=== PATIENT | male | born 1955 | race Caucasian/White ===

== ENCOUNTER 2016-07-21 06:48 | Day surgery (SDC) | payer OTHER ==
--- NOTE | ~2016-07-21 | EGD ---
EGD REPORT [facility] [address] [address] NAME: ITZ SANCHEZ : 59 STATUS : REG [facility]#: [id number] AGE: 60 ADM/REG DATE : 07/21/16 MR#: [id number] REPORT SERV DATE: 07/21/16 DICTATED BY: DATE: REPORT STATUS : Draft TRANSCRIBED BY: [employer] DATE: 07/21/16 [facility] Patient Name: Itz Sanchez Date of : 1955 Attending MD: MART BROWN MD Procedure Date No Time: 07/21/2016 Procedure: Colonoscopy Indications: Screening for colorectal malignant neoplasm Referring MD: Dell Cohen Medicines: Propofol per Anesthesia Complications: No immediate complications. Procedure: Pre-Anesthesia Assessment: - ASA Grade Assessment: III - A patient with severe systemic disease. After I obtained informed consent, the scope was passed under direct vision. Throughout the procedure, the patient's blood pressure, pulse, and oxygen saturations were monitored continuously. The CF [id number] was introduced through the anus and advanced to the cecum, identified by appendiceal orifice and ileocecal valve. The ileocecal valve, appendiceal orifice and terminal ileum were photographed. The entire colon was examined. The colonoscopy was performed without difficulty. Findings: The perianal and digital rectal examinations were normal. A sessile polyp was found in the descending colon. The polyp was 5 mm in size. The polyp was removed with a hot snare. Resection and retrieval were complete. Many medium-mouthed diverticula were found in the recto-sigmoid colon, in the sigmoid colon and in the descending colon. Internal hemorrhoids were found during retroflexion and were Grade I (internal hemorrhoids that do not prolapse). The rest of the colon was normal. Impression: - One 5 mm polyp in the descending colon. Resected and retrieved. - Diverticulosis in the recto-sigmoid colon, in the sigmoid colon and in the descending colon. - Internal hemorrhoids. Recommendation: - Discharge patient to home (ambulatory). - Repeat colonoscopy in 5 years for surveillance. Procedure Code(s): --- Professional --- EGD REPORT [address] [address] NAME: ITZ SANCHEZ : [birth year] STATUS : REG [facility] [place] PAT#: [id number] AGE: 60 ADM/REG DATE : 07/21/16 MR#: [id number] REPORT SERV DATE: 07/21/16 DICTATED BY: DATE: REPORT STATUS : Draft TRANSCRIBED BY: [employer] DATE: 07/21/16 [id number], Colonoscopy, flexible, proximal to splenic flexure; with removal of tumor(s), polyp(s), or other lesion(s) by snare technique Diagnosis Code(s): --- Professional --- D12.4, Benign neoplasm of descending colon K64.0, First degree hemorrhoids K57.30, Diverticulosis of large intestine without perforation or abscess without bleeding Z12.11, Encounter for screening for malignant neoplasm of colon CPT copyright 2013 [employer]. All rights reserved. The codes documented in this report are preliminary and upon slot router review may be revised to meet current compliance requirements. Mart Brown MD MART BROWN MD 07/21/2016 8:13 AM This report has been signed electronically. Number of Addenda: 0 Note Initiated On: 07/21/2016 7:50 AM Scope Withdrawal Time 0 hours 7 minutes 42 seconds [id number] [address]
[~2016-07-21 06:48] MED LIST: GLUCCHONDR PO; GLUCOPHAGE1000 MG PO; GLUCXL2.5 PO; LOTE20 PO; MOBIC7.5 PO; PLEND5 PO; PRILOSEC OTC20 MG PO; ZOCOR40 PO
== END 2016-07-21 23:59 | disposition home or self-care (01) ==
LOC: DMU 06:48
PROVIDERS: Internal Medicine Gastroenterology
PROC: 0DBM8ZZ Excision of Descending Colon, Via Natural or Artificial Opening Endoscopic (ICD-10-PCS; principal; 2016-07-21 08:00)
DX: Z12.11 Encounter for screening for malignant neoplasm of colon (principal); D12.4 Benign neoplasm of descending colon; K57.30 Diverticulosis of large intestine without perforation or abscess without bleeding; K64.0 First degree hemorrhoids; K21.9 Gastro-esophageal reflux disease without esophagitis; I10 Essential (primary) hypertension; E11.9 Type 2 diabetes mellitus without complications; E78.00 Pure hypercholesterolemia, unspecified; G47.33 Obstructive sleep apnea (adult) (pediatric); E66.9 Obesity, unspecified; Z68.33 Body mass index [BMI] 33.0-33.9, adult; Z91.040 Latex allergy status; Z79.1 Long term (current) use of non-steroidal anti-inflammatories (NSAID); Z79.84 Long term (current) use of oral hypoglycemic drugs; Z79.899 Other long term (current) drug therapy; Z87.891 Personal history of nicotine dependence
CPT/HCPCS: 82962; 88305